=== PATIENT | female | born 1935 | race Caucasian/White ===

== ENCOUNTER 2021-11-13 11:19 | Inpatient (IN) | payer MEDICARE, OTHER ==
[~2021-11-13] VITALS: Ht 149.9 cm; Wt 56.8 kg
[~2021-11-13 11:19] MED LIST: AMLO1TAB25 PO; ASPI81TA86 PO; ATOR40TA75 PO; CARI1TAB7 PO; COZA50TA PO; FURO20TA2 PO; GABA-1171 PO; IMDU60TA PO; KLOR1TAB69 PO; META1TAB22 PO; NABU-71 PO; NITR0.4D6 TD; PERCOCET PO; PRAD150C6 PO; TYLE167L PO
[2021-11-13] MEDS ORDERED: ERGO500029 PO (12:21)
[2021-11-13] MEDS ORDERED: XARE15TA PO (12:21)
[2021-11-13] MEDS ORDERED: ACETAMINOPHEN 325 MG TAB PO ONE (12:25)
[2021-11-13] MEDS ORDERED: ONDANSETRON 4MG 2ML VIAL IV ONE (12:25)
[2021-11-13] MEDS ORDERED: NS 500 ML IV ONE (12:25)
[2021-11-13] MEDS ORDERED: AMLO2.5T3 PO (12:29)
[2021-11-13] MEDS ORDERED: DIGO0.123 PO (12:29)
[2021-11-13 12:34] LABS: BASO # 0.1 10^3/uL (0.0-0.2); BASO % 0.5 % (0.0-1.0); EOS # 0.2 10^3/uL (0.0-0.5); EOS % 2.1 % (0.0-3.0); HEMATOCRIT 41.8 % (36.0-47.0); HEMOGLOBIN 13.8 g/dl (12.0-15.5); LYMPH # 1.9 10^3/uL (1.5-5.0); MEAN CORPUSCULAR HEMOGLOBIN 32.7 pg (27.0-33.0); MEAN CORPUSCULAR VOLUME 99.1 fl (80.0-96.0); MONO % 8.7 % (2.0-8.0); NEUTROPHILS # 7.9 10^3/uL (1.5-8.5); NEUTROPHILS % 71.2 % (36.0-66.0); PLATELET COUNT, AUTOMATED 177 10^3/uL (150-450); RED BLOOD COUNT 4.22 10^6/uL (4.00-5.40); WHITE BLOOD COUNT 11.1 10^3/uL (4.0-10.0)
[2021-11-13] MEDS ORDERED: CARB25TA9 PO (12:41)
[2021-11-13 13:03] LABS: ALBUMIN 3.7 GM/DL (3.2-5.2); BILIRUBIN,DIRECT 0.3 MG/DL (0.0-0.2); BILIRUBIN,TOTAL 0.9 MG/DL (0.2-1.0); CALCIUM LEVEL 9.5 MG/DL (8.8-10.2); CREATININE FOR GFR 1.98 MG/DL (0.55-1.30); GLOMERULAR FILTRATION RATE 25.6 (>32); POTASSIUM SERUM 3.3 MEQ/L (3.5-5.1); TOTAL PROTEIN 6.8 GM/DL (6.4-8.2)
[2021-11-13] MEDS ORDERED: SUCRALFATE 1 GM TAB PO ONE (14:00)
[2021-11-13] MEDS ORDERED: PANTOPRAZOLE 40MG VIAL IV ONE (14:00)
[2021-11-13] MEDS ORDERED: GI COCKTAIL 50ML BTL(HYOSCYAMINE/MAALOX/LIDOCAINE VISCOUS)(1:3:1) PO ONE (14:00)
[2021-11-13] MEDS ORDERED: HYDR12.55 PO (14:54)
[2021-11-13] MEDS ORDERED: OXYC10TA3 PO (14:54)
[2021-11-13] MEDS ORDERED: POTA10CA32 PO (14:54)
[2021-11-13] MEDS ORDERED: HOME MED LIST COMPLETE! XX SCH (14:55)
[2021-11-13] MEDS ORDERED: ONDANSETRON 4MG 2ML VIAL IV PRN (15:35)
[2021-11-13] MEDS ORDERED: MAALOX 30 ML SUSP *UDC PO PRN (15:35)
[2021-11-13] MEDS: NS 1,000 ML IV SCH (16:22)
[2021-11-13] MEDS: RIVAROXABAN 15MG TAB (XARELTO) PO SCH (18:15)
[2021-11-13] MEDS: KCL 10MEQ/100ML SWI (KRUN) 10 MEQ in IV 1 EA IV SCH ×4 (18:16→21:58)
[2021-11-13] MEDS ORDERED: DIGOXIN IMMUNE FAB IV ONE (20:00)
[2021-11-13] MEDS ORDERED: NS IV ONE (20:00)
[2021-11-13] MEDS ORDERED: SINEMET 12.5MG/50MG PER 1/2 TABLET PO SCH (21:00)
[2021-11-13] MEDS ORDERED: METOPROLOL TART 25 MG TABLET PO SCH (21:00)
[2021-11-13 21:45] LABS: CALCIUM LEVEL 8.6 MG/DL (8.8-10.2); CREATININE FOR GFR 1.88 MG/DL (0.55-1.30); GLOMERULAR FILTRATION RATE 27.1 (>32); POTASSIUM SERUM 4.6 MEQ/L (3.5-5.1)
[2021-11-13] MEDS: ATORVASTATIN 20 MG TAB PO SCH (21:58)
[2021-11-13] MEDS: METAXALONE 800 MG TABLET PO SCH (22:07)
[2021-11-14] VITALS (10 sets, daily range): BP systolic 133–174; BP diastolic 60–91
[2021-11-14] MEDS: LIDOCAINE 4% CREAM 5GM (LMX4) TOP PRN ×2 (05:05→22:57)
[2021-11-14] MEDS: NS 1,000 ML IV SCH (05:06)
[2021-11-14 06:40] LABS: CALCIUM LEVEL 8.2 MG/DL (8.8-10.2); CREATININE FOR GFR 1.78 MG/DL (0.55-1.30); GLOMERULAR FILTRATION RATE 28.9 (>32); MAGNESIUM LEVEL 1.6 MG/DL (1.8-2.4); POTASSIUM SERUM 3.5 MEQ/L (3.5-5.1)
[2021-11-14] MEDS ORDERED: MAG SULF 1GM/100ML (MAG RUN) 1 GM in IV 1 EA IV SCH (07:25)
[2021-11-14] MEDS ORDERED: POTASSIUM CHLORIDE 10MEQ SR TABLET PO ONE (07:30)
[2021-11-14] MEDS ORDERED: MAG SULF 1GM/100ML (MAG RUN) 1 GM in IV 1 EA IV ONE ×2 (08:00→09:00)
[2021-11-14] MEDS ORDERED: ATROPINE SULF 1MG/10ML SYRINGE (J0461) IV ONE (09:00)
[2021-11-14] MEDS: METAXALONE 800 MG TABLET PO SCH ×3 (09:00→20:56)
[2021-11-14] MEDS ORDERED: DIGOXIN 0.125 MG TAB PO SCH (09:00)
[2021-11-14] MEDS ORDERED: ATROPINE SULF 1MG/10ML SYRINGE (J0461) IV PRN (10:45)
[2021-11-14 12:27] LABS: CALCIUM LEVEL 8.3 MG/DL (8.8-10.2); CREATININE FOR GFR 1.63 MG/DL (0.55-1.30); MAGNESIUM LEVEL 2.3 MG/DL (1.8-2.4); POTASSIUM SERUM 3.6 MEQ/L (3.5-5.1)
[2021-11-14] MEDS: RIVAROXABAN 15MG TAB (XARELTO) PO SCH (17:02)
[2021-11-14] MEDS: ATORVASTATIN 20 MG TAB PO SCH (20:56)
[2021-11-14] MEDS: ACETAMINOPHEN TAB 650MG DOSE (2X325MG) PO PRN (23:47)
[2021-11-15] VITALS (16 sets, daily range): BP systolic 110–219; BP diastolic 60–90
[2021-11-15 04:31] LABS: CLOSTRIDIUM DIFFICILE PCR NEGATIVE (NEGATIVE)
[2021-11-15 05:45] LABS: CALCIUM LEVEL 8.2 MG/DL (8.8-10.2); CREATININE FOR GFR 1.46 MG/DL (0.55-1.30); GLOMERULAR FILTRATION RATE 36.3 (>32); MAGNESIUM LEVEL 2.2 MG/DL (1.8-2.4); POTASSIUM SERUM 3.7 MEQ/L (3.5-5.1)
[2021-11-15 07:45] LABS: HEMATOCRIT 36.3 % (36.0-47.0); HEMOGLOBIN 11.5 g/dl (12.0-15.5); MEAN CORPUSCULAR HEMOGLOBIN 33.1 pg (27.0-33.0); MEAN CORPUSCULAR HGB CONC 31.7 g/dl (32.0-36.5); MEAN CORPUSCULAR VOLUME 104.6 fl (80.0-96.0); PLATELET COUNT, AUTOMATED 123 10^3/uL (150-450); RED BLOOD COUNT 3.47 10^6/uL (4.00-5.40); WHITE BLOOD COUNT 8.6 10^3/uL (4.0-10.0)
[2021-11-15 07:56] LABS: BILIRUBIN,TOTAL 0.3 MG/DL (0.2-1.0); TOTAL PROTEIN 5.6 GM/DL (6.4-8.2)
[2021-11-15] MEDS: METAXALONE 800 MG TABLET PO SCH ×3 (08:23→20:02)
[2021-11-15] MEDS ORDERED: amLODIPine 5 MG TAB PO SCH (09:00)
[2021-11-15] MEDS: ACETAMINOPHEN TAB 650MG DOSE (2X325MG) PO PRN ×2 (11:05→19:53)
[2021-11-15] MEDS: **hydrALAZINE HCL** 25 MG TAB PO SCH ×2 (14:19→21:44)
[2021-11-15] MEDS: RIVAROXABAN 15MG TAB (XARELTO) PO SCH (17:49)
[2021-11-15] MEDS: ATORVASTATIN 20 MG TAB PO SCH (20:02)
[2021-11-15] MEDS: LIDOCAINE 4% CREAM 5GM (LMX4) TOP PRN (20:03)
[2021-11-16] VITALS: BP 183/78
[2021-11-16] MEDS ORDERED: HYDROMORPHONE HCL 0.5 MG/ 0.5 ML SYRINGE (J1170 PER 1) IV PRN
[2021-11-16 04:00] VITALS: BP 164/72
[2021-11-16 04:48] LABS: HEMOGLOBIN 11.8 g/dl (12.0-15.5); MEAN CORPUSCULAR HEMOGLOBIN 32.9 pg (27.0-33.0); MEAN CORPUSCULAR HGB CONC 31.9 g/dl (32.0-36.5); MEAN CORPUSCULAR VOLUME 103.1 fl (80.0-96.0); PLATELET COUNT, AUTOMATED 116 10^3/uL (150-450); RED BLOOD COUNT 3.59 10^6/uL (4.00-5.40); WHITE BLOOD COUNT 11.3 10^3/uL (4.0-10.0)
[2021-11-16 05:06] LABS: CALCIUM LEVEL 8.6 MG/DL (8.8-10.2); CREATININE FOR GFR 1.23 MG/DL (0.55-1.30); GLOMERULAR FILTRATION RATE 44.3 (>32); MAGNESIUM LEVEL 2.1 MG/DL (1.8-2.4); POTASSIUM SERUM 3.8 MEQ/L (3.5-5.1)
[2021-11-16 05:57] VITALS: BP 144/64
[2021-11-16] MEDS: **hydrALAZINE HCL** 25 MG TAB PO SCH (05:57)
[2021-11-16] MEDS: LIDOCAINE 4% CREAM 5GM (LMX4) TOP PRN (08:54)
[2021-11-16] MEDS: METAXALONE 800 MG TABLET PO SCH (08:54)
[2021-11-16 09:30] VITALS: BP 147/69
[2021-11-16] MEDS ORDERED: LIDO5DIS41 TOP (11:26)
[2021-11-16] MEDS ORDERED: CORE3.12 PO (11:26)
[2021-11-20] MEDS ORDERED: VITAMIN D 50,000 UNITS CAPSULE (ERGOCALCIFEROL 1.25MG) PO SCH (09:00)
== END 2021-11-16 13:45 | disposition home or self-care (01) | DRG 394 ==
LOC: M ED 11:19 → M ED INP 11:20 → ENRESERV 11-14 08:06 → M ICU 11-14 11:01 → OBSVTOIN 11-15 08:41 → M ICU 11-15 08:41
PROVIDERS: ADMIT Internal Medicine; ATTEND Internal Medicine
DX: K52.1 Toxic gastroenteritis and colitis (principal); N17.9 Acute kidney failure, unspecified; I48.19 Other persistent atrial fibrillation; T46.0X5A Adverse effect of cardiac-stimulant glycosides and drugs of similar action, initial encounter; I11.0 Hypertensive heart disease with heart failure; I25.10 Atherosclerotic heart disease of native coronary artery without angina pectoris; I50.9 Heart failure, unspecified; E83.42 Hypomagnesemia; E87.6 Hypokalemia; G20 Parkinson's disease; R00.1 Bradycardia, unspecified; E78.5 Hyperlipidemia, unspecified; M19.90 Unspecified osteoarthritis, unspecified site; Z90.49 Acquired absence of other specified parts of digestive tract; Z95.5 Presence of coronary angioplasty implant and graft; Z79.899 Other long term (current) drug therapy; Z79.01 Long term (current) use of anticoagulants

== ENCOUNTER 2023-01-11 08:11 | Day surgery (SDC) | payer MEDICARE, OTHER ==
[~2023-01-11] VITALS: Ht 147.3 cm; Wt 70.3 kg
[~2023-01-11 08:11] MED LIST changes: +AMLO2.5T3 PO; +CARB25TA9 PO; +CORE3.12 PO; -COZA50TA PO; +DIGO0.123 PO; +ERGO500029 PO; +HYDR12.55 PO; +LIDO5DIS41 TOP; +LOSA-528 PO; +NS 1,000 ML IV ONE; +OXYC10TA3 PO; +POTA10CA60 PO; +XARE15TA PO
[2023-01-11] MEDS ORDERED: propofoL 200 MG/20 ML VIAL As Ordered ONE (10:02)
[2023-01-11] MEDS ORDERED: METOPROLOL 5 MG/5 ML VIAL As Ordered ONE (10:03)
[2023-01-11 10:55] VITALS: BP 196/90; O2SAT 98
== END 2023-01-11 11:13 | disposition home or self-care (01) ==
LOC: M OPP 08:11
PROVIDERS: ATTEND Internal Medicine Gastroenterology
DX: D12.4 Benign neoplasm of descending colon (principal); K63.5 Polyp of colon; K57.30 Diverticulosis of large intestine without perforation or abscess without bleeding; K64.8 Other hemorrhoids; K59.00 Constipation, unspecified; Z95.5 Presence of coronary angioplasty implant and graft; Z79.01 Long term (current) use of anticoagulants; Z79.02 Long term (current) use of antithrombotics/antiplatelets; Z79.891 Long term (current) use of opiate analgesic; Z79.899 Other long term (current) drug therapy

== ENCOUNTER 2023-05-12 07:35 | Day surgery (SDC) | payer MEDICARE, OTHER ==
[~2023-05-12] VITALS: Ht 149.9 cm; Wt 75.9 kg
[~2023-05-12 07:35] MED LIST changes: +HYDR-3490 PO; +LORA-1041 PO; +MIDAZOLAM INJ 2MG/2ML VIAL As Ordered ONE; -NS 1,000 ML IV ONE; +PHENYLEPHRINE 10% OPHTH SOL 5ML OS PRN; +PREG100C2 PO; +SPIR-10 PO; +ZOLP5TAB PO; +fentaNYL 100 MCG/2 ML INJECTION As Ordered ONE
[2023-05-12] MEDS: LIDOCAINE 3.5 % 1ML OPHTH TOPICAL GEL OU ONE (07:57)
[2023-05-12] MEDS: OFLOXACIN 0.3 % (OCUFLOX) OPTH SOL 5ML OS ONE (07:57)
[2023-05-12] MEDS: PHENYLEPHRINE 2.5% OPHTH SOL 2ML OS SCH (07:58)
[2023-05-12] MEDS: TROPICAMIDE 1% OPHTH SOLN 15ML OS SCH (07:58)
[2023-05-12] MEDS: ATROPINE SULFATE 1% OPHTH SOLN 2ML BTL OS SCH (07:58)
[2023-05-12] MEDS: CEFUROXIME 1MG/0.1ML INTRACAMERAL INJ As Ordered ONE (08:35)
[2023-05-12] MEDS: LIDOCAINE 1% SDV 5ML VIAL As Ordered ONE (08:35)
[2023-05-12] MEDS: BSS IRRIG/VANCO(10MG)/TOBRA(5MG)/EPINEPH(1:1000-0.5CC)500ML BAG-ORONLY As Ordered ONE (08:35)
[2023-05-12 08:55] VITALS: BP 167/80; TEMP 97.3; O2SAT 97
== END 2023-05-12 09:13 | disposition home or self-care (01) ==
LOC: M SDC 07:35
PROVIDERS: ATTEND Ophthalmology
DX: H25.12 Age-related nuclear cataract, left eye (principal); Z95.5 Presence of coronary angioplasty implant and graft; I48.20 Chronic atrial fibrillation, unspecified; Z79.899 Other long term (current) drug therapy
CPT/HCPCS: 66984; 92015; J0697; J2250; J3010; V2788

== ENCOUNTER 2023-05-26 07:30 | Day surgery (SDC) | payer MEDICARE, OTHER ==
[~2023-05-26] VITALS: Ht 149.9 cm; Wt 76.2 kg
[2023-05-26] MEDS: BSS IRRIG/VANCO(10MG)/TOBRA(5MG)/EPINEPH(1:1000-0.5CC)500ML BAG-ORONLY As Ordered ONE (06:45)
[~2023-05-26 07:30] MED LIST changes: +PHENYLEPHRINE 10% OPHTH SOL 5ML OD PRN; -PHENYLEPHRINE 10% OPHTH SOL 5ML OS PRN
[2023-05-26] MEDS: OFLOXACIN 0.3 % (OCUFLOX) OPTH SOL 5ML OD ONE (08:20)
[2023-05-26] MEDS: LIDOCAINE 3.5 % 1ML OPHTH TOPICAL GEL OU ONE (08:20)
[2023-05-26] MEDS: LIDOCAINE 1% SDV 5ML VIAL As Ordered ONE (08:31)
[2023-05-26] MEDS: CEFUROXIME 1MG/0.1ML INTRACAMERAL INJ As Ordered ONE (08:37)
[2023-05-26] MEDS: TROPICAMIDE 1% OPHTH SOLN 15ML OD SCH (08:40)
[2023-05-26] MEDS: ATROPINE SULFATE 1% OPHTH SOLN 2ML BTL OD SCH (08:40)
[2023-05-26] MEDS: PHENYLEPHRINE 2.5% OPHTH SOL 2ML OD SCH (08:40)
[2023-05-26 08:58] VITALS: BP 136/97; TEMP 96.6; O2SAT 98
== END 2023-05-26 09:30 | disposition home or self-care (01) ==
LOC: M SDC 07:30
PROVIDERS: ATTEND Ophthalmology
DX: H25.11 Age-related nuclear cataract, right eye (principal); I48.20 Chronic atrial fibrillation, unspecified; I10 Essential (primary) hypertension; E78.00 Pure hypercholesterolemia, unspecified; Z79.899 Other long term (current) drug therapy; Z79.01 Long term (current) use of anticoagulants; Z95.5 Presence of coronary angioplasty implant and graft; Z90.710 Acquired absence of both cervix and uterus
CPT/HCPCS: 66984; 92015; J0697; J2250; J3010; V2788

== ENCOUNTER 2023-05-27 08:01 | Emergency (ER) | payer MEDICARE, OTHER ==
[2023-05-27] MEDS: EPINEPHrine 1MG/10ML SYRINGE 1.5IN IV STA ×7 (08:00→08:28)
[~2023-05-27 08:01] MED LIST changes: -MIDAZOLAM INJ 2MG/2ML VIAL As Ordered ONE; -PHENYLEPHRINE 10% OPHTH SOL 5ML OD PRN; -fentaNYL 100 MCG/2 ML INJECTION As Ordered ONE
[2023-05-27] MEDS ORDERED: EPINEPHrine 1MG/10ML SYRINGE 1.5IN ONE (08:02)
[2023-05-27] MEDS ORDERED: SODIUM BICARBONATE 8.4% INJ 50ML SYRINGE ONE (08:02)
[2023-05-27] MEDS ORDERED: CALCIUM CHLORIDE 10% 1 GM/10 ML SYR ONE (08:02)
[2023-05-27] MEDS: NS 500 ML IV ONE (08:03)
[2023-05-27] MEDS: SODIUM BICARBONATE 8.4% INJ 50ML SYRINGE IV STA ×3 (08:10→08:24)
[2023-05-27] MEDS: CALCIUM CHLORIDE 10% 1 GM in D5W 100 ML IV ONE ×2 (08:12→08:20)
[2023-05-27] MEDS ORDERED: DEXTROSE 50% 50ML SYRINGE As Ordered ONE (08:15)
[2023-05-27] MEDS: DEXTROSE 50% 50ML SYRINGE IV SCH (08:17)
[2023-05-27] MEDS: HumuLIN R (REGULAR) INSULIN (NovoLIN R) **100U/ML** PER UNIT IV ONE (08:17)
[2023-05-27] MEDS ORDERED: CALCIUM CHLORIDE 10% 1 GM/10 ML SYR As Ordered ONE (08:19)
== END 2023-05-27 13:34 | disposition expired ==
LOC: M ED 08:01
DX: I46.9 Cardiac arrest, cause unspecified (principal); I48.91 Unspecified atrial fibrillation; I50.22 Chronic systolic (congestive) heart failure; I11.0 Hypertensive heart disease with heart failure; E78.5 Hyperlipidemia, unspecified; N18.9 Chronic kidney disease, unspecified; G20.C Parkinsonism, unspecified
CPT/HCPCS: 80047; 92950; 96374; 96375; 99285; J0171; J1815